=== PATIENT | male | born 1990 ===

== ENCOUNTER 2018-10-24 21:51 | Emergency (ER) | payer BC ==
[2018-10-24 22:04] VITALS: O2SAT 96
[2018-10-24] MEDS ORDERED: Albuterol-Ipratrop 3 mg / 0.5 (3 ml) UD INH STA ×3 (22:10→22:11)
--- NOTE | 2018-10-24 22:15 | C.PDOC ---
History Of Present Illness 27 yo male hx of asthma, last attack 10 yrs aog. presents with chest tight ness x 2 days just moved to [place]. triggered by "heat in his apt". no other complaints. in er in [facility] speaking full sentence.s Time Seen by Provider: 10/24/18 22:07 Chief Complaint (Nursing): Shortness Of Breath Past Medical History Reviewed: Historical Data, Nursing Documentation, Vital Signs Vital Signs: Last Vital Signs Temp 98.1 F 10/24/18 22:00 Pulse 90 10/24/18 22:00 Resp 16 10/24/18 22:00 BP Pulse Ox 96 10/24/18 22:00 Primary Care Provider: FAMILY PROVIDER,NO - Medical History PMH: Asthma Family History: States: Unknown Family Hx - Social History Hx Alcohol Use: Yes Hx Substance Use: No - Immunization History Hx Tetanus Toxoid Vaccination: Yes Hx Influenza Vaccination: Yes Hx Pneumococcal Vaccination: No Review Of Systems Respiratory: Positive for: Shortness of Breath, Wheezing Physical Exam - Physical Exam Appears: Well, No Acute Distress, Other (speaking full sentnecs in nad) Skin: Normal Color, Warm, Dry Eye(s): bilateral: Normal Inspection, PERRL, EOMI Nose: Normal Throat: Normal Neck: Normal Cardiovascular: Rhythm Regular Respiratory: Normal Breath Sounds, Wheezing (bl) Gastrointestinal/Abdominal: Normal Exam Back: Normal Inspection Extremity: Normal ROM ED Course And Treatment O2 Sat by Pulse Oximetry: 96 Medical Decision Making Medical Decision Making: asthma nebs steriods resess cxr neg wheezzing resolved statees "i feel 10x better" asking for dc. Disposition - Disposition Referrals: [facility] [Outside] [facility] [Outside] Disposition: HOME/ ROUTINE Disposition Time: 22:00 Condition: STABLE Additional Instructions: return to any er with worsening. Prescriptions: Albuterol 0.083% [Albuterol 0.083% Inhal Camille (2.5 mg/3 ml) UD] 2.5 mg IH Q4 PRN #20 neb PRN Reason: Wheezing Albuterol HFA [Ventolin HFA 90 mcg/actuation (8 g)] 1 puff IH Q4 PRN #1 inhaler PRN Reason: Wheezing Nebulizer [Aeroeclipse II] 1 each MC Q4 PRN #1 each PRN Reason: Wheezing Prednisone 50 mg PO DAILY #5 tablet Instructions: Asthma in Adults Forms: [facility] (Yakut) - Clinical Impression Clinical Impression: Asthma
[2018-10-25 00:08] VITALS: BP 145/89; PULSE 86; RESP 19; TEMP 98.2
--- NOTE | 2018-10-25 10:15 | RAD ---
HISTORY: asthma COMPARISON: None available TECHNIQUE: Chest PA and lateral, 2 views FINDINGS: LUNGS: No focal consolidation. Please note that chest x-ray has limited sensitivity for the detection of pulmonary masses. PLEURA: No significant pleural effusion identified. No definite pneumothorax . CARDIOVASCULAR: The cardiomediastinal silhouette appears within normal limits of size. No atherosclerotic calcification present. OSSEOUS STRUCTURES: No acute osseous abnormality identified. VISUALIZED UPPER ABDOMEN: Unremarkable. OTHER FINDINGS: None. IMPRESSION: No acute findings identified.
== END 2018-10-25 00:08 | disposition home or self-care (01) ==
LOC: C.ER 21:51
DX: J45.909 Unspecified asthma, uncomplicated (principal)